=== PATIENT | male | born 1935 | race American Indian/Alaskan Native ===

== ENCOUNTER 2017-08-21 09:38 | Outpatient (CLI) | payer MEDICARE ==
--- NOTE | 2017-08-22 07:32 | Ultrasound Report ---
Renal sonogram: History: Elevated hemoglobin. Findings: 6 right kidney measures 9.5 x 4.7-4.7 cm. Cortical thickness 1.1 cm. Left kidney measures 7.7 x 2.9 x 3.5 cm. Cortical thickness 0.9 cm. Tiny 2 dense echogenic areas are identified right kidney probably suggestive of nonobstructing calculi. Mild hydronephrosis. Suspected small right renal cysts. Measures approximately 2.2 x 1.8 x 1.9 cm in the region of the lower pole. Left kidney appears mildly atrophied. Mild hydronephrosis. There is a mass identified within the bladder measuring 5.8 x 5.9 cm. Impression: Bilateral mild hydronephrosis. Nonobstructing calculi right kidney. Right renal cyst. Atrophic left kidney. Mass in the bladder. Cystogram or cystoscopy recommended to rule out neoplasm.
== END 2017-08-21 09:39 | disposition home or self-care (01) ==
LOC: US 09:38
PROVIDERS: ATTEND Internal Medicine Nephrology
DX: N28.1 Cyst of kidney, acquired (principal); N26.1 Atrophy of kidney (terminal); N13.2 Hydronephrosis with renal and ureteral calculous obstruction; N28.89 Other specified disorders of kidney and ureter
CPT/HCPCS: 76770